=== PATIENT | male | born 1990 | race Caucasian/White ===

== ENCOUNTER 2017-12-25 17:11 | Emergency (ER) | payer OTHER ==
[2017-12-25] MEDS: ONDANSETRON 4MG/2ML VIAL (J2405) IV ×2 (17:42)
[2017-12-25] MEDS: MORPHINE 4 MG/ML 1ML SYRINGE IV (17:42)
[2017-12-25] MEDS: MORPHINE 4 MG/ML 1ML VIAL (J2270) IV (17:42)
== END 2017-12-25 18:31 | disposition home or self-care (01) ==
LOC: M ED 17:11
DX: S93.402A Sprain of unspecified ligament of left ankle, initial encounter (principal); X50.9XXA Other and unspecified overexertion or strenuous movements or postures, initial encounter; Y92.512 Supermarket, store or market as the place of occurrence of the external cause; F17.210 Nicotine dependence, cigarettes, uncomplicated
CPT/HCPCS: J2270; J2405